=== PATIENT | female | born 1940 | race Caucasian/White ===

== ENCOUNTER → 2016-11-11 | Outpatient (CLI) | payer MEDICARE, BC ==
[~2016-11-11] MED LIST: ASPIRIN PO; FISH OIL 1,0001 CAP PO; IBUPROFEN PO; INDERAL LA PO; LISINOPRIL10 MG PO; PLAQUENIL200 MG PO; PLAVIX PO; PRAVACHOL PO; ZOCOR PO
[2016-11-11 23:41] LABS: FOLATE (FOLIC ACID) 16.7 ng/mL (>5.8)
== END | disposition home or self-care (01) ==
LOC: SLAB 16:16
DX: D64.9 Anemia, unspecified (principal)
CPT/HCPCS: 82607; 82746